=== PATIENT | male | born 1995 | race Caucasian/White ===

== ENCOUNTER 2022-01-07 09:47 | Emergency (ER) | payer SELFPAY ==
[~2022-01-07] VITALS: Ht 182.9 cm; Wt 104.3 kg
[2022-01-07 09:50] VITALS: BP 109/57
--- NOTE | 2022-01-07 10:18 | NUR ---
PATIENT BIB [employer]. PATIENT EXAMINED BY DR. ROSE. PATIENT MEDICALLY CLEARED AND RELEASED IN CUSTODY IN STABLE CONDITION. ORIGINAL PRE-BOOK FORM GIVEN TO OFFICER JOHN #[id number].
== END 2022-01-07 10:18 ==
LOC: MED 09:47
DX: Z02.89 Encounter for other administrative examinations (principal); V89.2XXA Person injured in unspecified motor-vehicle accident, traffic, initial encounter; Y93.89 Activity, other specified; Y92.89 Other specified places as the place of occurrence of the external cause; Y99.8 Other external cause status
CPT/HCPCS: 99283